=== PATIENT | male | born 1960 | race Caucasian/White ===

== ENCOUNTER 2018-06-19 16:08 | Outpatient (CLI) | payer OTHER, SELFPAY ==
[2018-06-19 16:37] LABS: Prothrombin Time 9.5 sec (9.3-10.8)
[2018-06-19 17:45] LABS: ALT 151 U/L (12-78); AST 83 U/L (15-37); Albumin 3.5 g/dL (3.4-5.0); Alkaline Phosphatase 190 U/L (46-116); Bilirubin, Direct 1.65 mg/dL (0.00-0.20); Bilirubin, Total 1.9 mg/dL (0.2-1.0)
== END 2018-06-19 16:28 ==
PROVIDERS: PCP General Practice; Visit Provider General Practice
DX: K71.6 Toxic liver disease with hepatitis, not elsewhere classified (principal)
CPT/HCPCS: 36415; 82040; 82247; 82248; 84075; 84450; 84460; 85610

== ENCOUNTER 2018-08-14 11:31 | Outpatient (CLI) | payer OTHER, SELFPAY ==
[2018-08-14 13:40] LABS: ALT 60 U/L (12-78); AST 27 U/L (15-37)
== END 2018-08-14 11:51 ==
PROVIDERS: PCP General Practice; Visit Provider General Practice
DX: K71.6 Toxic liver disease with hepatitis, not elsewhere classified (principal)
CPT/HCPCS: 36415; 84450; 84460

== ENCOUNTER 2018-09-16 00:13 | Outpatient (CLI) | payer OTHER, SELFPAY ==
--- NOTE | 2018-09-16 08:50 | DI.CT_ITS ---
SYMPTOM/DIAGNOSIS: [place] [facility] [place] PULMONARY NODULE LEFT UPPER LOBE CT SCAN CHEST: Noncontrast CT scan of the chest was performed. Comparison is with examination from [facility] dated 05/21/18. There is atherosclerosis of the thoracic aorta but no aneurysmal dilatation is seen. Heart size is within normal limits. No significant pericardial effusion seen. No significant thoracic adenopathy is appreciated. No pleural effusion or pneumothorax is identified. There is again seen a calcified granuloma in the left lower lobe. The opacities previously seen in the left lower lobe have resolved. No focal consolidating infiltrates are seen. The 4 mm nodular density in the left upper lobe is unchanged in size or appearance compared to the prior examination. No new pulmonary nodules are appreciated. Degenerative changes are seen in the spine. The sclerotic focus seen in the T-6 vertebral body is unchanged. IMPRESSION: Stable left upper lobe pulmonary nodule. 2. Resolution of the left lower lobe pulmonary infiltrate. Follow up should be based on patient's risks and history. A follow up low dose CT scan of the chest should be considered in 6-12 months.
== END 2018-09-16 00:33 ==
PROVIDERS: PCP General Practice; Visit Provider General Practice
DX: R91.1 Solitary pulmonary nodule (principal); J84.10 Pulmonary fibrosis, unspecified; R91.8 Other nonspecific abnormal finding of lung field
CPT/HCPCS: 71250

== ENCOUNTER → 2022-08-08 02:21 | Outpatient (CLI) | payer OTHER, SELFPAY ==
--- NOTE | 2022-08-08 07:15 | DI.RAD_ITS ---
Exam(s) XR CHEST 2V PA LATERAL EXAM: XR CHEST 2V PA LATERAL CLINICAL HISTORY: solitary pulmonary nodule, ? new nodule or infiltrate TECHNIQUE: 2D digital imaging was performed. COMPARISON: No exams were available for comparison FINDINGS: The heart is not enlarged. The lungs are clear and well expanded. No pleural effusion seen. Mediastin al contours appear intact. IMPRESSION: Normal chest. RADIATION DOSE DELIVERED: Total DLP
== END ==
PROVIDERS: PCP Student in an Organized Health Care Education/Training Program; Visit Provider Student in an Organized Health Care Education/Training Program
DX: R91.1 Solitary pulmonary nodule (principal)
CPT/HCPCS: 71046

== ENCOUNTER 2023-05-03 01:36 | Outpatient (CLI) | payer OTHER, SELFPAY ==
[2023-05-03 13:14] LABS: ALT 25 U/L (16-63); AST 18 U/L (15-37); Albumin 3.9 g/dL (3.4-5.0); Alkaline Phosphatase 93 U/L (46-116); Anion Gap 9.2 mmol/L (3-11); BUN 22 mg/dL (7-18); Bilirubin, Total 0.7 mg/dL (0.2-1.0); CO2 26.8 mmol/L (21.0-32.0); Calcium 8.6 mg/dL (8.5-10.1); Calculated LDL 134 mg/dL (<100); Chloride 104 mmol/L (98-107); Cholesterol 205 mg/dL (<200); Estimated GFR 84.05 (mL/min/1.73m2); Glucose 96 mg/dL (74-106); HDL Cholesterol 50 mg/dL (40-60); Potassium 4.3 mmol/L (3.5-5.1); Sodium 140 mmol/L (136-145); Total Protein 7.5 g/dL (6.4-8.2); Triglyceride 107 mg/dL (<150)
[2023-05-03 13:28] LABS: Bilirubin, Direct 0.1 mg/dL (0.0-0.2)
== END 2023-05-03 01:37 | disposition home or self-care (01) ==
PROVIDERS: PCP Student in an Organized Health Care Education/Training Program; Visit Provider Student in an Organized Health Care Education/Training Program
DX: K71.6 Toxic liver disease with hepatitis, not elsewhere classified (principal); K76.89 Other specified diseases of liver; R74.8 Abnormal levels of other serum enzymes; R79.89 Other specified abnormal findings of blood chemistry
CPT/HCPCS: 36415; 80053; 80061; 80076

== ENCOUNTER 2023-05-17 07:20 | Day surgery (SDC) | payer OTHER, SELFPAY ==
--- NOTE | 2023-05-16 20:26 | W.COLOREPORT ---
Date of service: 05/17/23 Time of Service: 08:32 Colonoscopy Report Date of procedure: 05/17/23 Pre-op diagnosis general: CRC screening Post-op diagnosis procedure note: other (I. hemorrhoids ) Surgeon: Abbie Mc Anesthesia Type: General:No Airway Estimated blood loss (mL): 0 Pathology: none sent Complications: None Disposition: same day Prep: Miralax/Dulcolax Retraction Time: 14 Procedure Description: After informed consent was obtained the patient was taken to the procedure room and placed in a left decubitous position. Monitors were applied and a time out was done. The patients name, date of , procedure, allergies to medications and metal in their body was reviewed. The patient was then sedated. Once sedated and comfortable a rectal exam was done. External exam was normal. Internal exam revealed a normal sphincter tone and no palpable masses. The prostate normall The scope was then introduced and retrofelexed. Grade 1 internal hemorrhoids x1 polyp without were identified. The scope was then advanced to the cecum difficulty. The TI and appendiceal orifice were identified. The prep was BBPS 1 in the right colon and BBPS 3 in the transverse and left colon for a total of 7. The scope was then slowly retracted over 14 minutes back into the rectum. There are no polyps, diverticula, or AVMs visualized today. The mucosa is pink and healthy with a normal vascular pattern. The scope was removed and the patient was woken up and taken back to Same day surgery in stable condition. The patient tolerated the procedure well and there were no immediate complications. Follow up: The patient should follow up in 10 years unless they develop changes in bowel habits or other new gastrointestinal complaints.
--- NOTE | 2023-05-16 20:27 | PDOC.DSDIS_ITS ---
Date of service: 05/17/23 Time of Service: 08:34 Discharge Plan Disposition Patient Disposition: Home Condition: Good Discharge Details Reason For Visit: colon cancer screening Attending Provider: Abbie Mc Primary Care Provider: Ramila Jo Home Meds and New Rx's Prescriptions: Continued loratadine [Allergy Relief (loratadine)] 10 mg tablet 10 mg PO DAILY Discontinued bisacodyl [Dulcolax (bisacodyl)] 5 mg tablet,delayed release (DR/EC) 5 mg PO ONCE Qty: 4 0RF Rx Instructions: Take per colonoscopy instructions provided by ordering providers office polyethylene glycol 3350 17 gram/dose powder 17 g PO ONCE Qty: 238 0RF Rx Instructions: Take per colonoscopy instructions provided by ordering providers office Discharge Instructions Additional Instructions: DSU Colonoscopy Post- Op Instructions Instructions for Everyone who is given Anesthesia: For your safety, please do the following for the next twenty-four (24) hours: *Do Not operate a motor vehicle (car, truck, motorcycle, etc.) *Do Not drink alcoholic beverages or use any recreational drugs for the first 24 hours or while taking pain medications. The medications in your body may have a reaction that can be dangerous. *Do Not make any important decisions or sign any important papers. Findings: Normal Follow up: Repeat in 10 yrs time 1. No lifting over 20 pounds or strenuous activity for the first 24 hours after your procedure. After 24 hours there are no restrictions on your activity but you may feel fatigued for a few days. 2. After you arrive home you may have a light meal and return to your normal diet as you can tolerate it without feeling sick to your stomach. 3. You may have a bloated, gaseous feeling in your belly (abdomen) after a colonoscopy. Passing gas and belching will help. Walking or lying down on your left side with your knees flexed may relieve the discomfort. Call the office at [phone] (Office) or [phone] (Hospital) right away if you notice any of the following: a.Vomiting of blood or ?coffee ground stools?. b.Rectal bleeding 1Tbsp, blood clots or continuous bleeding. c.Severe belly (abdominal) pain. d.A hard distended belly (abdomen) and an inability to pass gas. 4. Please don?t expect to have a normal BM (bowel movement) for 2-3 days after your procedure. 5. If there are questions regarding the findings of your procedure, please contact your doctor 6. If you are unable to contact your doctor with a problem, contact the hospital at [phone]. 7. Continue all your regular medications unless directed otherwise. I understand the above instructions and have no questions. Signature of Patient or Adult Escort Name of Responsible Adult Escort Signature of Nurse Date/Time Activity:: see above Diet:: see above Discharge Orders Discharge Orders: Discharge Order (Routine); Ordered 05/17/23 Ordered By: Abbie Mc DS: Diagnosis Discharge Diagnosis (1) Solitary pulmonary nodule: Status: Acute (2) Drug-induced hepatitis: Status: Acute (3) Screening for malignant neoplasm performed: Status: Acute Asessment and Plan: The patient is seen and examined after their colonoscopy.? The patient has been able to pass gas.? They are not having abdominal pain.? They have been able to tolerate liquids and a snack.? They do not have any nausea or vomiting.? They are not having any chest pain or shortness of breath.??? They are not having any rectal bleeding. Their vital signs have been stable-see nursing notes. We discussed findings during their colonoscopy, and any biopsies that were done/polyps that were removed. The patient will be sent a letter with any biopsy results, and when to repeat the colonoscopy.-see discharge instructions. Patient was given explicit instructions to follow-up regarding colonoscopy-refer to discharge instructions.? We reviewed resumption of medications. Patient verbalized understanding and discharged in stable and satisfactory condition- See nursing notes.
[2023-05-17 07:22] VITALS: BP 136/97; PULSE 67; RESP 18; TEMP 36.7; O2SAT 98
[2023-05-17] MEDS: Lactated Ringers 1,000 ML 80 ML IV (07:45)
--- NOTE | 2023-05-17 08:04 | ANES.PREOP_ITS ---
General Info Date of Service Date Performed: 05/17/23 Height: 5 ft 8 in Weight: 81.6 kg Body Mass Index (BMI): 27.3 Surgical Procedure: Operation Date: 05/17/23 08:20 Proposed Procedure Side Surgeon codie Mc, Meds Allergies and Home Medications Allergies Allergy/AdvReac Type Severity Reaction Status Date / Time amoxicillin [From Augmentin] Allergy Severe Hepatitis Verified 05/16/23 14:26 clavulanic acid Allergy Severe Hepatitis Verified 05/16/23 14:26 [From Augmentin] Home Medication Medication Instructions Recorded loratadine 10 mg tablet (Allergy 10 mg PO DAILY 05/02/23 Relief (loratadine)) Current Visit Medications: Current Medications Generic Name Dose Route Start Last Admin Trade Name Freq PRN Reason Stop Dose Admin Hyoscyamine Sulfate 0.125 mg 05/17/23 01:02 Hyoscyamine 0.125 Mg Sl/Oral/Chew SL 06/16/23 01:01 DIRECTED PRN Ringer's Solution 1,000 mls @ 80 mls/hr 05/17/23 06:00 05/17/23 07:45 IV 05/17/23 23:59 80 mls/hr INFUSION SHELLY Administration IV Miscellaneous Supplies 1 each 05/17/23 06:00 Iv Access IV 05/17/23 23:59 DIRECTED SHELLY Ondansetron HCl 4 mg 05/17/23 01:02 Ondansetron 4 Mg/2 Ml Vial IVP 06/16/23 01:01 Q4H PRN PRN Nausea / Vomiting Sodium Chloride 0 ml 05/17/23 06:00 Normal Saline Flush 10 Ml Syr IV 05/17/23 23:59 PRN PRN Sodium Chloride 0 ml 05/17/23 06:00 Normal Saline 10 Ml Vial IJ 05/17/23 23:59 DIRECTED PRN Sterile Water 0 ml 05/17/23 06:00 Water,Injection,Sterile 10 Ml Vial IJ 05/17/23 23:59 DIRECTED PRN PFSH Active Problems Active Problems: Problem Status Onset Code Screening for malignant neoplasm performed Z12.9 Abnormal laboratory test R89.9 Solitary pulmonary nodule R91.1 Drug-induced hepatitis ~2018 K71.6, T50.905A Surgical History Surgical History S/P right inguinal herniorrhaphy S/P tonsillectomy and adenoidectomy Tobacco Smoking/Tobacco Use Status: Never Passive smoking exposure: No Alcohol Alcohol Intake: current Alcohol intake frequency: a few times a week Alcohol type: beer Substance Use Substance use: Never Substance use type: does not use Details: alcohol t-2 Vital Signs and Lab Results Vital Signs Most Recent Vital Signs in EMR: Most Recent Vital Signs Temp Pulse Resp BP Pulse Ox 36.7 C 67 18 136/97 H 98 05/17/23 07:22 05/17/23 07:22 05/17/23 07:22 05/17/23 07:22 05/17/23 07:22 Lab Results Blood Type / Crossmatch: No Data to Display Complete Blood Count: No Data to Display Complete Metabolic Panel: Sodium 140 mmol/L (136-145) 05/03/23 12:03 Potassium 4.3 mmol/L (3.5-5.1) 05/03/23 12:03 Chloride 104 mmol/L (98-107) 05/03/23 12:03 Carbon Dioxide 26.8 mmol/L (21.0-32.0) 05/03/23 12:03 BUN 22 mg/dL (7-18) H 05/03/23 12:03 Creatinine 1.0 mg/dL (0.70-1.30) 05/03/23 12:03 Est GFR (CKD-EPI 2020) 84.05 (mL/min/1.73m2) 05/03/23 12:03 Calcium 8.6 mg/dL (8.5-10.1) 05/03/23 12:03 Albumin 3.9 g/dL (3.4-5.0) 05/03/23 12:03 Glucose 96 mg/dL (74-106) 05/03/23 12:03 Liver Function Panel: Alanine Aminotransferase (ALT/SGPT) 25 U/L (16-63) 05/03/23 12: 03 Aspartate Amino Transf (AST/SGOT) 18 U/L (15-37) 05/03/23 12:03 Coagulation Panel: No Data to Display Cardiac Panel: No Data to Display Arterial Blood Gas: No Data to Display Venous Blood Gas: No Data to Display Pancreas Panel: No Data to Display Thyroid Panel: No Data to Display Infectious Disease: No Data to Display Blood Cultures: No Data to Display Toxicology Panel: No Data to Display Anesthesia Assessment and Plan Anesthesia History Personal History: No History of Anesthesia Complications Family History: No Family History of Anesthesia Complications Exercise Tolerance Exercise Tolerance: Metabolic Equivalents>4 Pertinent Negatives Pertinent Negatives: No Symptoms of GERD, No Major Cardiovascular Symptoms or Complaints and No Major Pulmonary Symptoms or Complaints Cardiac & Pulmonary Exam Cardiac Exam: Normal S1/S2 Heart Sounds Pulmonary Exam: Clear Bilateral Breath Sounds Implantable Cardiac Device Does patient have a Pacemaker or an ICD?: No Airway Exam Known Difficult Airway: No Mallampati Class: 1 Mouth Opening: Normal (> 3cm) Thyromental Distance: Greater than 3 cm Neck Range of Motion: Full ROM Neck Circumference: Normal Teeth Condition: Normal Dentition ASA Classification ASA Score: ASA 2 Emergency Case?: No NPO Status NPO Status: NPO Clears >2 hours, Solids >8 hours Anesthesia Plan Resuscitation Status: Full Code Anesthesia Technique: General Anesthesia Airway Planned: Natural Airway Monitors Used: Standard Monitors
[2023-05-17 08:06] VITALS: BMI 27.3
[2023-05-17 08:33] VITALS: BP 104/77; PULSE 60; RESP 16; TEMP 36.5; O2SAT 100
[2023-05-17 09:00] VITALS: BP 125/82; PULSE 68; RESP 16; TEMP 36.2; O2SAT 97
--- NOTE | 2023-05-17 09:44 | W.ANESPOSTOP ---
Postoperative Evaluation Date, Time and Location Date Performed: 05/17/23 Time Performed: 09:44 Patient Location: Day Surgery Unit Vital Signs Most Recent Imported Vital Signs: Most Recent Vital Signs Temp Pulse Resp BP Pulse Ox 36.2 C L 68 16 125/82 97 05/17/23 09:00 05/17/23 09:00 05/17/23 09:00 05/17/23 09:00 05/17/23 09:00 Pain Score Most Recent Pain Score: Most Recent Pain Score Pain Level 0 05/17/23 09:00 Assessment Mental Status: Awake (Alert & Oriented to Patient Baseline) Airway and Respiratory Function: Patent airway with normal (patient baseline) respiratory exam Cardiovascular Function: Hemodynamically Stable Hydration Status: Adequately Hydrated Nausea & Vomiting: No Nausea or Vomiting Pain: Pt. Denies Any Pain Peripheral Nerve Block: Patient did not receive a nerve block
== END 2023-05-17 09:35 | disposition home or self-care (01) ==
LOC: SUR 07:20
PROVIDERS: PCP Student in an Organized Health Care Education/Training Program; Visit Provider Surgery
PROC: 0DJD8ZZ Inspection of Lower Intestinal Tract, Via Natural or Artificial Opening Endoscopic (ICD-10-PCS; CPT 45378; principal; 2023-05-17 08:15)
DX: Z12.11 Encounter for screening for malignant neoplasm of colon (principal); K64.0 First degree hemorrhoids
CPT/HCPCS: 45378

== ENCOUNTER 2023-08-20 10:26 | Outpatient (REF) | payer OTHER, SELFPAY ==
--- NOTE | 2023-08-20 10:25 | SKI_PTH ---
PATIENT: William Bal LOC: [facility] U#:[id number] AGE/SX: 63/M ROOM: RE08/20/[address]: Jamila Squires MD : [id number] BED: DIS: 08/20/2023 SPEC #: [id number] RECD: 08/20/23 12:54 STATUS: CINDY REQ #: [id number] JEAN: 08/20/23 10:[address]: Jamila Squires DEPT: Surgical Specimen RECD BY: Genet Camilo ENTERED: 08/20/23 12:54 SP TYPE: SKI OTHR DR: Ramila Jo DO Tissues: 1 - SKIN BIOPSY(SHAVE/PUNCH) Procedures: SKIN LEVEL 4 Comments: [id number]
== END 2023-08-20 10:27 | disposition home or self-care (01) ==
LOC: LBN 10:26
PROVIDERS: PCP Student in an Organized Health Care Education/Training Program; Visit Provider Surgery
DX: L98.8 Other specified disorders of the skin and subcutaneous tissue (principal); L82.1 Other seborrheic keratosis
CPT/HCPCS: 88305

== ENCOUNTER → 2024-03-10 00:01 | Outpatient (CLI) | payer OTHER, SELFPAY ==
--- NOTE | 2024-03-10 07:00 | DI.RAD_ITS ---
Exam(s) XR CHEST 2V PA LATERAL EXAM: XR CHEST 2V PA LATERAL CLINICAL HISTORY: Evaluate nodule (4 mm MAHESH) for growth since 2018,r91.1 TECHNIQUE: 2D digital imaging was performed of the chest. Two images were obtained. PA and lateral views were obtained. COMPARISON: CT CT CHEST W from 05/21/[address] CHEST WO from 09/16/2018 CR XR CHEST 2V PA LATERAL from 08/08/2022 FINDINGS: MEDIASTINUM: Normal. HEART: Normal. PULMONARY VASCULATURE: Normal. LUNGS: The 4 mm pulmonary nodule is best appreciated on CT scans of the chest from 05/21/2018 and 2017. It is not visualized on the chest x-ray of today. The lungs are clear. PLEURAL SPACE: No pleural effusion or pneumothorax. BONE:Within normal limits for the patient's age. OTHER FINDINGS:Normal. IMPRESSION: 1. No acute pulmonary findings. 2. The pulmonary nodule in the left upper lobe was best appreciated on the CT scan. If further evalu ation is warranted, a noncontrast CT scan of the chest may be obtained. DATA REPOSITORY: RADIATION DOSE DELIVERED:
== END ==
PROVIDERS: PCP Student in an Organized Health Care Education/Training Program; Visit Provider Student in an Organized Health Care Education/Training Program
DX: R91.1 Solitary pulmonary nodule (principal)
CPT/HCPCS: 71046

== ENCOUNTER 2025-09-21 01:21 | Outpatient (CLI) | payer MEDICARE, SELFPAY ==
[2025-09-21 08:45] LABS: HCT 48.8 % (40.0-50.0); HGB 16.7 g/dL (13.5-17.5); MCH 31.1 pg (27.0-33.0); MCHC 34.2 % (32.0-36.0); MCV 91 fL (80-95); MPV 9.2 fL (8.0-11.0); Platelet Count 244 10^3/uL (130-400); RBC 5.37 10^6/uL (4.36-5.78); RDW 12.3 % (11.8-14.1); RDW-SD 40.5 fL; WBC 7.62 10^3/uL (4.4-10.8)
[2025-09-21 09:03] LABS: ALT 24 U/L (10-49); AST 24 U/L (<34); Albumin 4.5 g/dL (3.2-5.0); Alkaline Phosphatase 94 U/L (46-116); Anion Gap 4.6 mmol/L (3-11); BUN 17 mg/dL (9-23); Bilirubin, Total 0.7 mg/dL (0.2-1.2); CO2 31.4 mmol/L (20.0-31.0); Calcium 8.8 mg/dL (8.3-10.6); Chloride 106 mmol/L (98-107); Cholesterol 209 mg/dL (<200); Glucose 98 mg/dL (74-106); HDL Cholesterol 54 mg/dL (>40); Potassium 5.1 mmol/L (3.5-5.1); Sodium 142 mmol/L (136-145); Total Protein 7.6 g/dL (5.7-8.2)
[2025-09-21 18:54] LABS: PSA, Screening 0.6 ng/mL (<=4.5)
== END 2025-09-21 01:22 | disposition home or self-care (01) ==
LOC: LBO 01:21
PROVIDERS: PCP Nurse Practitioner Family; Referring Provider Nurse Practitioner Family; Visit Provider Nurse Practitioner Family
DX: E78.00 Pure hypercholesterolemia, unspecified (principal); Z80.6 Family history of leukemia; Z12.5 Encounter for screening for malignant neoplasm of prostate
CPT/HCPCS: 36415; 80053; 80061; 84153; 85027